=== PATIENT | male | born 1965 | race African-American/Black ===

== ENCOUNTER 2016-07-21 17:11 | Inpatient (IN) | payer SELFPAY ==
[~2016-07-21] VITALS: Ht 185.4 cm; Wt 138.9 kg
[2016-07-21] MEDS ORDERED: diazePAM 5 MG TABLET PO ONE (17:45)
[2016-07-21] MEDS ORDERED: MORPHINE SULFATE 10 MG/ML VIAL. IV ONE (17:45)
[2016-07-21] MEDS ORDERED: HYDROcodone/APAP 5/325MG 1 TAB TABLET PO ONE (18:15)
--- NOTE | 2016-07-21 18:33 | PHYS DOC ---
Past Medical History Past Medical History: Diabetes-Type II, Diverticulitis, Hypertension Past Surgical History: Appendectomy, Other Additional Past Surgical Histo: HEART TRANSPLANT,COLON RESECTION Alcohol Use: None Drug Use: None Adult General Chief Complaint Chief Complaint: LOWER EXT PAIN HPI HPI Patient is a 50 year old male with history of hypertension, diabetes type 2, diverticulitis, who presents complaining of muscle tear to the right calf. Patient states he was backing up a step when he heard something snap in his caff. Patient believes it was a muscle tear. Review of Systems Review of Systems Constitutional: Denies fever or chills [] Eyes: Denies change in visual acuity, redness, or eye pain [] HENT: Denies nasal congestion or sore throat [] Respiratory: Denies cough or shortness of breath [] Cardiovascular: No additional information not addressed in HPI [] GI: Denies abdominal pain, nausea, vomiting, bloody stools or diarrhea [] : Denies dysuria or hematuria [] Musculoskeletal: Right calf pain Integument: Denies rash or skin lesions [] Neurologic: Denies headache, focal weakness or sensory changes [] Endocrine: Denies polyuria or polydipsia [] Current Medications Current Medications Current Medications Medications (Trade) Dose Ordered Sig/Lucia Start Time Stop Time Status Last Admin Dose Admin Acetaminophen/ Hydrocodone Bitart (Lortab 5/325) 2 tab 1X ONCE 07/21/16 18:15 07/21/16 18:16 DC 07/21/16 18:31 2 TAB Diazepam (Valium) 5 mg 1X ONCE 07/21/16 17:45 07/21/16 17:47 DC 07/21/16 18:31 5 MG Hydromorphone HCl (Dilaudid) 1 mg 1X ONCE 07/21/16 21:30 07/21/16 21:31 DC 07/21/16 21:15 1 MG Morphine Sulfate 5 mg 1X ONCE 07/21/16 20:00 07/21/16 20:01 DC 07/21/16 20:04 5 MG Allergies Allergies Allergies Coded Allergies Type Severity Reaction Last Updated Verified No Known Drug Allergies 07/21/16 No Physical Exam Physical Exam Constitutional: Well developed, well nourished, no acute distress, non-toxic appearance. [] HENT: Normocephalic, atraumatic, bilateral external ears normal, oropharynx moist, no oral exudates, nose normal. [] Eyes: PERRLA, EOMI, conjunctiva normal, no discharge. [] Neck: Normal range of motion, no tenderness, supple, no stridor. [] Cardiovascular:Heart rate regular rhythm, no murmur [] Lungs & Thorax: Bilateral breath sounds clear to auscultation [] Abdomen: Bowel sounds normal, soft, no tenderness, no masses, no pulsatile masses. [] Skin: Warm, dry, no erythema, no rash. [] Back: No tenderness, no CVA tenderness. [] Extremities: right calf appear slightly bigger than the right with bruising on the posterior calf. Negative Homans sign to the right lower extremity. No obvious deformity noted on the right lower extremity. Tenderness diffusely throughout the right cuff. No redness to the cuff. Adequate flexion and extension of the right foot though patient states it's painful. Adequate sensation to the right lower extremity. +2 right pedal pulse. Cap refill less than 2 seconds the right lower extremity. Neurologic: Alert and oriented X 3, normal motor function, normal sensory function, no focal deficits noted. [] Psychologic: Affect normal, judgement normal, mood normal. [] Current Patient Data Vital Signs Vital Signs Date Time Temp Pulse Resp B/P (MAP) Pulse Ox O2 Delivery O2 Flow Rate FiO2 07/21/16 20:04 Room Air 07/21/16 17:27 98.5 116 22 149/88 (108) 94 98.5 EKG EKG [] Radiology/Procedures Radiology/Procedures []PROCEDURE: VENOUS LOWER EXTREMITY RIGHT Examination: Ultrasound right lower extremity venous duplex. HISTORY History of right calf pain, muscle tear. COMPARISON None available TECHNIQUE Grayscale, color Doppler 2D, spectral waveform was of the right lower extremity venous system were performed. Findings: The visualized common femoral vein, superficial femoral vein, popliteal vein demonstrate normal compression augmentation of flow. The visualized calf veins are patent. There is a 10.3 x 2.9 x 0.6 centimeter heterogeneous echogenicity identified in the calf probably hematoma or fluid. Impression: 1. No evidence of deep venous thrombosis. 2. 10.3 centimeter heterogeneous echogenicity identified in the right calf region could be hematoma. Underlying muscle injury or tear not completely excluded. Electronically signed by: Abdi Fagan (July 21, 2016 21:09:26) DICTATED and SIGNED BY: ABDI FAGAN MD DATE: 07/21/162108 CC: PRAKASH RODRIGUEZ MD; FORTINO DUARTE APRN ~ Course & Med Decision Making Course & Med Decision Making Pertinent Labs and Imaging studies reviewed. (See chart for details) Patient is in the ED with complaints of right calf pain, he believes he tore muscle in his right calf walking back on a step. Patient denies falling. We gave patient multiple pain medicines in the ED with no relief. Gave him Dilaudid with some relief Contacted Dr. Rodriguez. Patient was admitted. Orthopedic doctor will be consulted tomorrow morning per nursing staff MRI ordered for tomorrow morning Ultrasound of lower extremity No evidence of deep venous thrombosis. 10.3 centimeter heterogeneous echogenicity identified in the right calfregion could be hematoma. Underlying muscle injury or tear not completely excluded. Dragon Disclaimer Dragon Disclaimer This electronic medical record was generated, in whole or in part, using a voice recognition dictation system. Departure Departure Impression: Primary Impression: Intractable pain Disposition: ADMITTED INPATIENT Admitting Physician: Ed Rodriguez Referrals: PRAKASH RODRIGUEZ MD (PCP) FORTINO DUARTE APRN July 21, 2016 18:33
[2016-07-21] MEDS ORDERED: MORPHINE SULFATE 10 MG/ML VIAL. IM ONE (20:00)
--- NOTE | 2016-07-21 21:10 | RAD ---
Examination: Ultrasound right lower extremity venous duplex. HISTORY History of right calf pain, muscle tear. COMPARISON None available TECHNIQUE Grayscale, color Doppler 2D, spectral waveform was of the right lower extremity venous system were performed. Findings: The visualized common femoral vein, superficial femoral vein, popliteal vein demonstrate normal compression augmentation of flow. The visualized calf veins are patent. There is a 10.3 x 2.9 x 0.6 centimeter heterogeneous echogenicity identified in the calf probably hematoma or fluid. Impression: 1. No evidence of deep venous thrombosis. 2. 10.3 centimeter heterogeneous echogenicity identified in the right calf region could be hematoma. Underlying muscle injury or tear not completely excluded. Electronically signed by: Abdi Fagan (July 21, 2016 21:09:26)
[2016-07-21] MEDS ORDERED: HYDROmorphone 2 MG/ML VIAL IM ONE (21:30)
[2016-07-21] MEDS ORDERED: ONDANSETRON PF 4 MG/2 ML VIAL. IV PRN (23:00)
[2016-07-21] MEDS: MORPHINE SULFATE 4 MG/ML DISP.SYRIN. IV PRN (23:38)
[2016-07-22] VITALS (7 sets, daily range): BP systolic 137–162; BP diastolic 88–111
--- NOTE | 2016-07-22 00:48 | ACF ---
Admission Forms Criteria PAIN MANAGEMENT GR Clinical Indications for Admission to Inpatient Care (Place 'X' for any and all applicable criteria): Hospital admission is needed for appropriate care of the patient because of 1 or more of the following are present (1)(2)(3)(4)(5): [X ]I. Severe pain requiring acute inpatient management as indicated by 1 or more of the following (2)(5)(10): [X ]a) Continuous or frequent (eg, every 2 to 4 hours) parenteral analgesics required [A] [ ]b) Necessity (ie, alternative approaches not effective) for analgesic regimen that can only be performed or initiated in inpatient setting [ ]II. Pain causing debilitation to the point of inability to function or be supported at any other level of care [ ]III. Severe side effects from pain medications as indicated by ANY ONE of the following (12)(13)(14)(15): [ ]a) Uncontrollable seizures [ ]b) Cardiac arrhythmias of immediate concern [ ]c) Dehydration that is severe or persistent [ ]d) Vomiting that is severe or persistent [ ]e) Altered mental status that is severe or persistent [ ]f) Obstipation with inadequate GI function to maintain nutrition The original [employer] content created by [employer] has been revised. The portions of the content which have been revised are identified through the use of italic text or in bold, and [employer] has neither reviewed nor approved the modified material. All other unmodified content is copyright [employer]. Please see references footnoted in the original [employer] edition 2016 Admission Criteria Met?: Yes KENNETH REYNOLDS July 22, 2016 00:48
[2016-07-22] MEDS: MORPHINE SULFATE 4 MG/ML DISP.SYRIN. IV PRN ×9 (01:21→21:45)
[2016-07-22] MEDS ORDERED: OMEG300C PO (03:39)
[2016-07-22] MEDS ORDERED: TRAZ50TA15 PO (03:39)
[2016-07-22] MEDS ORDERED: AMLO10TA2 PO (03:39)
[2016-07-22] MEDS ORDERED: CHOL500016 PO (03:39)
[2016-07-22] MEDS ORDERED: GLIP5TAB22 PO (03:39)
[2016-07-22] MEDS ORDERED: ESOM20CA PO (03:39)
[2016-07-22] MEDS ORDERED: TACR1CAP4 PO (03:39)
[2016-07-22] MEDS ORDERED: PRAV40TA2 PO (03:39)
[2016-07-22] MEDS ORDERED: ASPI81TA2 PO (03:39)
[2016-07-22] MEDS ORDERED: METO100T11 PO (03:39)
[2016-07-22 05:43] LABS: BASO % 1 % (0-3); EOS % 1 % (0-3); HEMATOCRIT 44.3 % (39.0-53.0); HEMOGLOBIN 14.5 g/dL (13.0-17.5); LYMPH # 2.1 x10^3/uL (1.0-4.8); LYMPH % 32 % (24-48); MEAN CORPUSCULAR HEMOGLOBIN 29 pg (25-35); MEAN CORPUSCULAR HGB CONC 33 g/dL (31-37); MEAN CORPUSCULAR VOLUME 90 fL (79-100); MONO % 11 % (0-9); NEUT % 55 % (31-73); PLATELET COUNT 163 x10^3/uL (140-400); RED BLOOD COUNT 4.93 x10^6/uL (4.30-5.70); RED CELL DISTRIBUTION WIDTH 15.6 % (11.5-14.5); WHITE BLOOD COUNT 6.5 x10^3/uL (4.0-11.0)
[2016-07-22 06:16] LABS: CALCIUM 8.6 mg/dL (8.5-10.1); CREATININE 0.9 mg/dL (0.7-1.3); GFR 108.1; POTASSIUM 3.7 mmol/L (3.5-5.1)
--- NOTE | 2016-07-22 11:19 | PDOC ---
Provider Note Provider Note He was carrying furniture and stepping back off step and hyper flexed his right ankle and felt an immediate pop and has been unable to weightbear since and in pain despite IV Morphine. He has an apparent hematoma and is awaiting an MRI and ortho consult. He has had a heart transplant, has multiple other chronic medical issues including diabetes and IBS but has been working. 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 Full H&P dictated PRAKASH BUNCH MD July 22, 2016 11:19
[2016-07-22] MEDS: ASPIRIN CHEWABLE 81 MG TABLET. PO SCH (11:40)
[2016-07-22] MEDS: CHOLECALCIFEROL (VITAMIN D3) 1,000 UNIT TABLET PO SCH (11:40)
[2016-07-22] MEDS: TACROLIMUS 1 MG CAPSULE PO SCH ×2 (11:40→21:07)
[2016-07-22] MEDS: PANTOPRAZOLE 40 MG TABLET.DR. PO SCH (11:40)
[2016-07-22] MEDS: METOPROLOL SUCC 24HR ER 100 MG TAB.ER.24H. PO SCH (11:41)
[2016-07-22] MEDS: amLODIPine BESYLATE 10 MG TABLET PO SCH (11:42)
[2016-07-22] MEDS: glipiZIDE ER 2.5 MG TAB.ER.24 PO SCH (12:12)
--- NOTE | 2016-07-22 13:43 | RAD ---
Examination: MRI of the right calf without contrast History: History of stepping from yesterday, calf pain Comparison: None available Technique: Multiplanar, multisequence MR imaging of the right calf was performed without contrast Findings: There is increased T2 signal with fluid identified between the soleus muscle and the medial head of the gastrocnemius muscle likely edema with irregular low intensity signal within the fluid between the soleus muscle and the medial head of the gastrocnemius muscle likely a ruptured plantaris tendon. The superior portion of the edema is not included on the images. There is mild T2 signal/edema identified in the medial gastrocnemius muscle probably muscle strain or interstitial muscle tearing. The partially visualized proximal portion of the Achilles tendon appears intact. There is mild subcutaneous edema identified in the proximal mid calf region in the posterior medial region. The visualized tibia, fibula grossly appears unremarkable. Please note the Achilles tendon is not completely included on the images. Impression 1. Findings consistent with plantaris tendon rupture with edema between the soleus muscle and medial gastrocnemius muscle. There is mild edema identified in the medial gastrocnemius muscle probably muscle strain or interstitial muscle tearing.
--- NOTE | 2016-07-22 15:20 | HP ---
ADMIT DATE: 07/22/2016 ADMISSION DIAGNOSES: Fall at home with intractable right calf pain suspicious for Achilles versus gastrocnemius tear. HISTORY OF PRESENT ILLNESS: This is a 50-year-old -[place] male who was moving furniture. He was walking backwards carrying a couch and going down the step, he hyperflexed his right ankle as he was stepping down and felt immediate pop sensation in his right calf and has been unable to put weight bear on that leg since. He came to the Emergency Room where he was seen and evaluated. An ultrasound suggested a hematoma. Because of his severe pain, he was admitted for additional imaging including MRI and an orthopedic consult. He continues to require IV pain medicine at this point and he has remained bed bound since being admitted. PAST MEDICAL HISTORY: Is extensive. 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 He has had a transplant tachycardia since, but no other significant cardiac issues. He has hyperlipidemia, hypertension, GERD, type 2 diabetes, irritable bowel, morbid obesity. PAST SURGICAL HISTORY: Include appendectomy, colon resection, and heart transplant. SOCIAL HISTORY: No current tobacco or alcohol use. ALLERGIES: No known drug allergies. HOME MEDICATIONS: Include amlodipine 10 mg daily, aspirin 81 daily, vitamin D3 5000 units daily, Nexium 20 mg daily, glipizide 5 mg extended release daily, metoprolol succinate extended release 100 mg daily, fish oil 300 mg 2 at bedtime, pravastatin 40 mg at bedtime, Prograf 4 caps b.i.d. due to his heart transplant, trazodone 50 mg 1 at bedtime. FAMILY HISTORY: Noncontributory, but positive for diabetes. REVIEW OF SYSTEMS: He had not had any recent chest pain or other cardiac symptoms. He denies any lung symptoms, no cough, no shortness of breath. Miserable bowel symptom has been stable and controlled. GERD, but without his Nexium; prior to breakfast, he typically will need it. He has not had any changes in his bowels. He has not had any urinary trouble. He had not had any other musculoskeletal complaints until this event yesterday. He has no history of DVT or clotting issues. Mentally, he is chronically depressed, but able to function and work. His pain tolerance is low. His blood sugars have been under good recent control per his report. PHYSICAL EXAMINATION: VITAL SIGNS: Stable. He is comfortable sitting in bed. He has his baseline cardiac; tachycardia of a 110, his blood pressure is a little elevated, but he has not received his morning medications yet. ABDOMEN: Obese, nondistended, nontender. EXTREMITIES: Right posterior calf is extremely tender to just light touch. The Achilles is nontender to insertion into the ankle. There is no pre-calcaneal or bursal pain. Trying to dorsiflex the foot though causes extreme calf pain. The left leg is unremarkable. Other muscles are unremarkable with normal tone. NEUROLOGIC: Alert and oriented. Gait is not obviously tested. HEENT: Unremarkable. Conjunctivae are clear. Mucous membranes are moist. Vision and hearing are intact. NECK: Supple. RESPIRATORY: Lungs are clear. LABORATORY DATA: Glucose is 222, but otherwise chemistries are unremarkable. His renal function is normal. Blood count is normal, he is not anemic. IMAGING STUDIES: Lower extremity ultrasound on the right shows no evidence of DVT. There is a 10.3 cm heterogenous echogenicity identified in the right calf, but could be a hematoma, although underlying muscle injury and tear are not excluded. ASSESSMENT: 1. Fall at home with acute right calf pain suspicious for an upper Achilles/gastroc muscle tear resulting in at least a hematoma if not more. His pain is severe. He is admitted for pain control, additional imaging studies including MRI and orthopedic consultation. 2. Status post heart transplant with transplant tachycardia, stable. 3. Irritable bowel. 4. Gastroesophageal reflux disease. 5. Type 2 diabetes. We will check his A1c to assess for control. 6. Hypertension, uncontrolled currently, but he has not received his home meds. 7. Hyperlipidemia. PLAN: He is admitted for a pain control and bed rest with MRI of the right lower extremity and Ortho consultation. W Leonid BUNCH MD DR: NUPUR/oralia JOB#: [id number] / [id number]
--- NOTE | 2016-07-22 19:52 | PDOC2 ---
CONSULT Date of Consult Date of Consult DATE: 07/22/16 TIME: 17:26 Reason for Consult Reason for Consult: right leg pain Identification/Chief Complaint Chief Complaint right leg pain Source Source: Chart review, Patient History of Present Illness Reason for Visit: The patient was moving a couch and missed a step and hyperflexed his right foot. He does not report feeling a pop. He was unable to ambulate afterwards and presented to the ER. An ultrasound revealed no dvt, but a complex fluid collection. An MRI was done which reveals a plantaris rupture and partial tear of the medial head of the gastroc with associated hematoma. He reports no parasthesias, and was able to ambulate,albiet with difficulty with PT today. He reports severe pain in the calf region of his right leg when it is touched or when he tries to pull his toes towards his head. He does not have much pain at rest. Past Medical History Cardiovascular: HTN, Hyperlipidemia, Other (history of cardiac transplant) GI: GERD Endocrine: Diabetes Past Surgical History Past Surgical History: Appendectomy, Colon Resection Family History Family History: Diabetes Social History No ALCOHOL: none Drugs: None Current Problem List Problem List Problems Medical Problems: (1) Intractable pain Status: Acute Current Medications Current Medications Current Medications Morphine Sulfate 5 mg 1X ONCE IV ; Start 07/21/16 at 17:45; Stop 07/21/16 at 18 :12; Status DC Diazepam (Valium) 5 mg 1X ONCE PO Last administered on 07/21/16 18:31; Start 07/21/16 at 17:45; Stop 07/21/16 at 17:47; Status DC Acetaminophen/ Hydrocodone Bitart (Lortab 5/325) 2 tab 1X ONCE PO Last administered on 07/21/16 18:31; Start 07/21/16 at 18:15; Stop 07/21/16 at 18:16 ; Status DC Morphine Sulfate 5 mg 1X ONCE IM Last administered on 07/21/16 20:04; Start 07/21/16 at 20:00; Stop 07/21/16 at 20:01; Status DC Hydromorphone HCl (Dilaudid) 1 mg 1X ONCE IM Last administered on 07/21/16 21 :15; Start 07/21/16 at 21:30; Stop 07/21/16 at 21:31; Status DC Ondansetron HCl (Zofran) 4 mg PRN Q8HRS PRN IV NAUSEA/VOMITING; Start 07/21/16 at 23:00; Stop 07/22/16 at 22:59 Morphine Sulfate 4 mg PRN Q2HR PRN IV SEVERE PAIN Last administered on 17:27; Start 07/21/16 at 23:00; Stop 07/22/16 at 22:59 Amlodipine Besylate (Norvasc) 10 mg DAILY PO Last administered on 07/22/16 11: 42; Start 07/22/16 at 11:30 Aspirin (Children'S Aspirin) 81 mg DAILY08 PO Last administered on 07/22/16 11 :40; Start 07/22/16 at 11:30 Metoprolol Succinate (Toprol Xl) 100 mg DAILY PO Last administered on 11:41; Start 07/22/16 at 11:30 Tacrolimus (Prograf) 4 mg BID PO Last administered on 07/22/16 11:40; Start at 11:30 Trazodone HCl (Desyrel) 50 mg QHS PO ; Start 07/22/16 at 21:00 Vitamin D (Vitamin D3) 1,000 unit DAILY PO Last administered on 07/22/16 11:40 ; Start 07/22/16 at 11:30 Pantoprazole Sodium (Protonix) 40 mg DAILYAC PO Last administered on 07/22/16 11:40; Start 07/22/16 at 11:30 Glipizide (Glucotrol Er) 5 mg DAILY08 PO Last administered on 07/22/16 12:12; Start 07/22/16 at 11:30 Fish Oil (Fish Oil) 1,000 mg QHS PO ; Start 07/22/16 at 21:00 Atorvastatin Calcium (Lipitor) 10 mg QHS PO ; Start 07/22/16 at 21:00 Active Scripts Active Reported Trazodone Hcl 50 Mg Tablet 1 Tab PO QHS Fish Oil ([place]-3 Fatty Acids) 300 Mg Capsule 600 Mg PO QHS Pravastatin Sodium 40 Mg Tablet 1 Tab PO QHS Vitamin D3 (Cholecalciferol (Vitamin D3)) 5,000 Unit Tablet 1 Tab PO DAILY Aspirin 81 Mg Tab.chew 1 Tab PO DAILY Glipizide Er (Glipizide) 5 Mg Tab.er.24 1 Tab PO DAILY Metoprolol Succinate ( Xl ) (Metoprolol Succinate) 100 Mg Tab.er.24h 1 Tab PO DAILY Amlodipine Besylate 10 Mg Tablet 10 Mg PO DAILY Prograf (Tacrolimus) 1 Mg Capsule 4 Cap PO BID Nexium Capsule (Esomeprazole Magnesium) 20 Mg Capsule. 1 Cap PO DAILY Allergies Allergies: Coded Allergies: No Known Drug Allergies (Unverified , 07/21/16) ROS General: No: Chills, Night Sweats, Fatigue, Malaise, Appetite, Other Musculoskeletal: Yes Gait Disturbance, Yes Muscle Pain, Yes Muscular Weakness Physical Exam General: Alert, Oriented X3, Cooperative, No acute distress MUSCULOSKELETAL: No deformity, Other (RLE: leg not swollen. ttp over the medial gastroc. compartments are soft. no parasthesias. silt in the superficial peroneal, deep peroneal, tibial, and sural nerves. 2+ dp pulse. pain with foot dorsiflexion) Vitals VITALS Vital Signs Date Time Temp Pulse Resp B/P (MAP) Pulse Ox O2 Delivery O2 Flow Rate FiO2 07/22/16 18:48 98.5 104 20 139/88 (105) 95 Room Air 98.5 Labs Labs Laboratory Tests Test 07/22/16 05:20 07/22/16 07:09 07/22/16 11:16 07/22/16 16:25 White Blood Count 6.5 x10^3/uL (4.0-11.0) Red Blood Count 4.93 x10^6/uL (4.30-5.70) Hemoglobin 14.5 g/dL (13.0-17.5) Hematocrit 44.3 % (39.0-53.0) Mean Corpuscular Volume 90 fL (79-100) Mean Corpuscular Hemoglobin 29 pg (25-35) Mean Corpuscular Hemoglobin Concent 33 g/dL (31-37) Red Cell Distribution Width 15.6 % (11.5-14.5) Platelet Count 163 x10^3/uL (140-400) Neutrophils (%) (Auto) 55 % (31-73) Lymphocytes (%) (Auto) 32 % (24-48) Monocytes (%) (Auto) 11 % (0-9) Eosinophils (%) (Auto) 1 % (0-3) Basophils (%) (Auto) 1 % (0-3) Neutrophils # (Auto) 3.6 x10^3uL (1.8-7.7) Lymphocytes # (Auto) 2.1 x10^3/uL (1.0-4.8) Monocytes # (Auto) 0.7 x10^3/uL (0.0-1.1) Eosinophils # (Auto) 0.1 x10^3/uL (0.0-0.7) Basophils # (Auto) 0.0 x10^3/uL (0.0-0.2) Sodium Level 136 mmol/L (136-145) Potassium Level 3.7 mmol/L (3.5-5.1) Chloride Level 99 mmol/L (98-107) Carbon Dioxide Level 28 mmol/L (21-32) Anion Gap 9 (6-14) Blood Urea Nitrogen 15 mg/dL (8-26) Creatinine 0.9 mg/dL (0.7-1.3) Estimated GFR (Cockcroft-Gault) 108.1 Glucose Level 222 mg/dL (70-99) Calcium Level 8.6 mg/dL (8.5-10.1) Glucose (Fingerstick) 205 mg/dL (70-99) 200 mg/dL (70-99) 227 mg/dL (70-99) Laboratory Tests Test 07/22/16 05:20 07/22/16 07:09 07/22/16 11:16 07/22/16 16:25 White Blood Count 6.5 x10^3/uL (4.0-11.0) Red Blood Count 4.93 x10^6/uL (4.30-5.70) Hemoglobin 14.5 g/dL (13.0-17.5) Hematocrit 44.3 % (39.0-53.0) Mean Corpuscular Volume 90 fL (79-100) Mean Corpuscular Hemoglobin 29 pg (25-35) Mean Corpuscular Hemoglobin Concent 33 g/dL (31-37) Red Cell Distribution Width 15.6 % (11.5-14.5) Platelet Count 163 x10^3/uL (140-400) Neutrophils (%) (Auto) 55 % (31-73) Lymphocytes (%) (Auto) 32 % (24-48) Monocytes (%) (Auto) 11 % (0-9) Eosinophils (%) (Auto) 1 % (0-3) Basophils (%) (Auto) 1 % (0-3) Neutrophils # (Auto) 3.6 x10^3uL (1.8-7.7) Lymphocytes # (Auto) 2.1 x10^3/uL (1.0-4.8) Monocytes # (Auto) 0.7 x10^3/uL (0.0-1.1) Eosinophils # (Auto) 0.1 x10^3/uL (0.0-0.7) Basophils # (Auto) 0.0 x10^3/uL (0.0-0.2) Sodium Level 136 mmol/L (136-145) Potassium Level 3.7 mmol/L (3.5-5.1) Chloride Level 99 mmol/L (98-107) Carbon Dioxide Level 28 mmol/L (21-32) Anion Gap 9 (6-14) Blood Urea Nitrogen 15 mg/dL (8-26) Creatinine 0.9 mg/dL (0.7-1.3) Estimated GFR (Cockcroft-Gault) 108.1 Glucose Level 222 mg/dL (70-99) Calcium Level 8.6 mg/dL (8.5-10.1) Glucose (Fingerstick) 205 mg/dL (70-99) 200 mg/dL (70-99) 227 mg/dL (70-99) Images Images MRI of the right leg reveals a hematoma of the superficial posterior compartment. Assessment/Plan Assessment/Plan His exam is not consistent with compartment syndrome, but that could be a concern if his exam changes or his pain worsens. No surgical intervention is warranted at this time. He is able to be wbat on his rle. I suggested a CAM walker boot to prevent him from dorsiflexing. However I told him it might cause him more pain due to where the boot hits on his calf. He would like to try it and see however. He will need to see how he does with PT and the boot and once his pain is under control he is stable for dc from my standpoint. JUAN FRANCISCO CANNON MD July 22, 2016 19:52
[2016-07-22] MEDS ORDERED: traZODone 50 MG TABLET. PO SCH (21:00)
[2016-07-22] MEDS ORDERED: ATORVASTATIN CALCIUM 10 MG TABLET. PO SCH (21:00)
[2016-07-22] MEDS ORDERED: OMEGA-3 FATTY ACIDS/FISH OIL 1,000 MG CAPSULE. PO SCH (21:00)
[2016-07-22] MEDS: oxyCODONE/APAP 7.5/325 1 TAB TABLET PO PRN ×2 (21:07→21:55)
[2016-07-22] MEDS ORDERED: MYCO500T PO (21:12)
[2016-07-22] MEDS: MYCOPHENOLATE MOFETIL 250 MG CAPSULE. PO SCH (21:45)
[2016-07-23] MEDS: MORPHINE SULFATE 4 MG/ML DISP.SYRIN. IV PRN ×7 (00:34→16:04)
[2016-07-23 02:58] VITALS: BP 171/113
[2016-07-23] MEDS: oxyCODONE/APAP 7.5/325 1 TAB TABLET PO PRN ×2 (04:38→15:20)
[2016-07-23] MEDS: PANTOPRAZOLE 40 MG TABLET.DR. PO SCH (06:44)
[2016-07-23 07:00] VITALS: BP 153/110
--- NOTE | 2016-07-23 07:07 | PDOC ---
PROGRESS NOTES Subjective Subjective Problems overnight: no acute issues overnight. he states his pain is improving. he has been trying to move his leg around more because he says "he needs to get back to work". He works standing and walking a lot so that may be difficult for him unless there is a light duty option. no signs or symptoms of compartment syndrome have evolved over the past 24 hours. Objective Vital Signs Vital Signs Date Time Temp Pulse Resp B/P (MAP) Pulse Ox O2 Delivery O2 Flow Rate FiO2 07/23/16 06:42 20 95 Room Air 07/23/16 02:58 97.6 104 171/113 (132) 97.6 Physical Exam RIGHT LOWER EXTREMITY: tenderness to palpation over the medial proximal calf. improved from yesterday. pain with dorsiflexion of the foot in the mid calf. neurovascularly intact distally. Labs Laboratory Tests Test 07/22/16 05:20 07/22/16 07:09 07/22/16 11:16 07/22/16 16:25 White Blood Count 6.5 x10^3/uL (4.0-11.0) Red Blood Count 4.93 x10^6/uL (4.30-5.70) Hemoglobin 14.5 g/dL (13.0-17.5) Hematocrit 44.3 % (39.0-53.0) Mean Corpuscular Volume 90 fL (79-100) Mean Corpuscular Hemoglobin 29 pg (25-35) Mean Corpuscular Hemoglobin Concent 33 g/dL (31-37) Red Cell Distribution Width 15.6 % (11.5-14.5) Platelet Count 163 x10^3/uL (140-400) Neutrophils (%) (Auto) 55 % (31-73) Lymphocytes (%) (Auto) 32 % (24-48) Monocytes (%) (Auto) 11 % (0-9) Eosinophils (%) (Auto) 1 % (0-3) Basophils (%) (Auto) 1 % (0-3) Neutrophils # (Auto) 3.6 x10^3uL (1.8-7.7) Lymphocytes # (Auto) 2.1 x10^3/uL (1.0-4.8) Monocytes # (Auto) 0.7 x10^3/uL (0.0-1.1) Eosinophils # (Auto) 0.1 x10^3/uL (0.0-0.7) Basophils # (Auto) 0.0 x10^3/uL (0.0-0.2) Sodium Level 136 mmol/L (136-145) Potassium Level 3.7 mmol/L (3.5-5.1) Chloride Level 99 mmol/L (98-107) Carbon Dioxide Level 28 mmol/L (21-32) Anion Gap 9 (6-14) Blood Urea Nitrogen 15 mg/dL (8-26) Creatinine 0.9 mg/dL (0.7-1.3) Estimated GFR (Cockcroft-Gault) 108.1 Glucose Level 222 mg/dL (70-99) Calcium Level 8.6 mg/dL (8.5-10.1) Glucose (Fingerstick) 205 mg/dL (70-99) 200 mg/dL (70-99) 227 mg/dL (70-99) Laboratory Tests Test 07/22/16 07:09 07/22/16 11:16 07/22/16 16:25 Glucose (Fingerstick) 205 mg/dL (70-99) 200 mg/dL (70-99) 227 mg/dL (70-99) Assessment Assessment Hospital day 2 with right lower extremity pain Problems: (1) Muscle strain (2) Intractable pain Plan Plan of Care I have ordered the patient a CAM walker boot to see if the ankle stability and limitation of dorsiflexion will help with his pain during ambulation. He will need to get up with physical therapy today after the boot is placed to see how he does. If his pain is well controlled and he feels safe for ambulation and discharge I think that would be reasonable to expect later today. he is also requesting a return to work note upon discharge. I told him it is highly unlikely that he will be up to standing for long periods of time and doing a lot of walking already since he hasn't really been out of bed since coming to the hospital. He will call his job today and see if there is a light duty option where he can sit at a desk. If so, I Think that would be more reasonable and he will need a note saying that light duty with limited standing / walking is ok. Otherwise he should remain off work until he sees me next week. follow-up in my office in 1 week. Thank you for allowing me to participate in the care of this patient. Please call my office at [facility] [phone] with any questions or concerns. JUAN FRANCISCO CANNON MD July 23, 2016 07:07
[2016-07-23] MEDS ORDERED: OXYC1TAB8 PO (08:59)
[2016-07-23] MEDS: TACROLIMUS 1 MG CAPSULE PO SCH (09:12)
[2016-07-23] MEDS: METOPROLOL SUCC 24HR ER 100 MG TAB.ER.24H. PO SCH (09:13)
[2016-07-23] MEDS: MYCOPHENOLATE MOFETIL 250 MG CAPSULE. PO SCH (09:13)
[2016-07-23] MEDS: ASPIRIN CHEWABLE 81 MG TABLET. PO SCH (09:13)
[2016-07-23] MEDS: glipiZIDE ER 2.5 MG TAB.ER.24 PO SCH (09:13)
[2016-07-23] MEDS: CHOLECALCIFEROL (VITAMIN D3) 1,000 UNIT TABLET PO SCH (09:13)
[2016-07-23] MEDS: amLODIPine BESYLATE 10 MG TABLET PO SCH (09:14)
[2016-07-23 11:00] VITALS: BP 150/108
--- NOTE | 2016-07-23 11:31 | DS ---
DATE OF DISCHARGE: 07/23/2016 ADMISSION DIAGNOSIS: Intractable pain, right lower extremity. DISCHARGE DIAGNOSIS: Plantaris tendon rupture with hematoma of the right leg. ASSOCIATED DIAGNOSES: Type 2 diabetes, controlled, hypertension, status post heart transplant, irritable bowel syndrome. HISTORY AND HOSPITAL COURSE: This is a 50-year-old -Citizen Of [place] male who was walking backwards, helping move a couch when he stepped down from a step and hyperflexed his right foot, he felt a pop in his right calf, had immediate pain, he was unable to ambulate. He came to the Emergency Room because he is unable to ambulate and subsequently admitted for pain control and further evaluation. He was noted on ultrasound of his calf to have a 10 cm hematoma. He required IV morphine and then oral Percocet for pain. Ice was placed on the calf to help with further swelling. No bruising was present. Ortho consultation was obtained. He was seen by Dr. Rahman. MRI was ordered and showed plantaris tendon rupture with edema between the soleus muscle and the medial gastrocnemius muscle and mild edema in the medial gastrocnemius muscle and probable muscle strain or interstitial muscle tearing. He did not seem to have a compartment syndrome. He is up with the assistance of a walker, but ambulating with discomfort. CAM boots have been ordered. He will be discharged home with crutches and CAM boot. CAM boot likely will cause some discomfort in the calf. The edema should resolve. He will continue ice. He will use Percocet 7.5/325 for pain. DISCHARGE MEDICATIONS: He will continue his home medications including amlodipine 10 mg daily, aspirin 81 daily, vitamin D3, 5000 units daily, Nexium 20 mg daily, glipizide 5 mg daily, metoprolol 100 mg extended release daily, CellCept 500 mg 2 b.i.d., omega 3 fish oil 300 mg 2 at bedtime, pravastatin 40 mg at bedtime, Prograf 1 mg 4 caps b.i.d., trazodone 50 mg at bedtime. PLAN: He will be up as tolerated. He wants to return to work on Saturday assuming he can get authorization for sit down duties. He will follow up with Dr. Rahman in week and follow up with myself within 2 weeks. W R. ALIVIA, MD DR: NUPUR/oralia JOB#: [id number] / [id number]
[2016-07-23 15:00] VITALS: BP 132/98
== END 2016-07-23 16:50 | disposition home or self-care (01) | DRG 563 ==
LOC: ER 18:06 → 6 SOUTH 21:32
PROVIDERS: ADMIT Family Medicine; ATTEND Family Medicine
DX: S86.111A Strain of other muscle(s) and tendon(s) of posterior muscle group at lower leg level, right leg, initial encounter (principal); I42.9 Cardiomyopathy, unspecified; Z94.1 Heart transplant status; Z68.41 Body mass index [BMI] 40.0-44.9, adult; K21.9 Gastro-esophageal reflux disease without esophagitis; E11.9 Type 2 diabetes mellitus without complications; E78.5 Hyperlipidemia, unspecified; I10 Essential (primary) hypertension; K58.9 Irritable bowel syndrome, unspecified; W19.XXXA Unspecified fall, initial encounter; X50.0XXA Overexertion from strenuous movement or load, initial encounter; Y92.009 Unspecified place in unspecified non-institutional (private) residence as the place of occurrence of the external cause; Z83.3 Family history of diabetes mellitus; Z74.01 Bed confinement status; Z90.49 Acquired absence of other specified parts of digestive tract; E66.01 Morbid (severe) obesity due to excess calories; S80.11XA Contusion of right lower leg, initial encounter
CPT/HCPCS: 36415; 73718; 80048; 82962; 83036; 85027; 93971; 96372; J1170; J2270; J7507; J7517; 97116; 99285-25

== ENCOUNTER → 2018-12-05 | Outpatient (CLI) | payer BC, OTHER ==
[~2018-12-05] MED LIST: AMLO10TA8 PO; ASPI-630 PO; CHOL500016 PO; ESOM20CA PO; GLIP5TAB22 PO; METO-247 PO; MYCO500T PO; OMEG300C PO; OXYC1TAB8 PO; PRAV40TA2 PO; TACR1CAP4 PO; TRAZ-118 PO
--- NOTE | 2018-12-05 15:30 | KCIC ---
EXAM: Right ankle, 3 views. HISTORY: Swelling. COMPARISON: None. FINDINGS: 3 views of the right ankle are obtained. There is no fracture, dislocation or subluxation. No osteochondral lesion is seen. There is a tiny plantar spur. There is soft tissue swelling. IMPRESSION: No acute osseous finding. Electronically signed by: Marychuy Layton MD (12/05/2018 3:27 PM) [facility]
== END | disposition home or self-care (01) ==
LOC: KCIC 12:04
PROVIDERS: ATTEND Nurse Practitioner Gerontology
DX: R60.0 Localized edema (principal); M25.471 Effusion, right ankle
CPT/HCPCS: 73610

== ENCOUNTER → 2018-12-26 | Outpatient (CLI) | payer BC, OTHER ==
--- NOTE | 2018-12-26 12:43 | KCIC ---
Right lower extremity venous duplex study 12/26/2018 12:40 PM Clinical History: Right lower extremity pain and edema Technique: Using a combination of real time ultrasound imaging and color-flow and pulse Doppler imaging techniques, including spectral analysis, graded compression and augmentation, duplex evaluation of the deep venous system of the right lower extremity was performed. Multiple images were obtained. Findings: There is no sonographic evidence of deep venous thrombosis involving the visualized deep venous structures of the right lower extremity Impression: No evidence of deep venous thrombosis involving the right lower extremity Electronically signed by: Jonnathan Larson MD (12/26/2018 12:40 PM) [id number]
--- NOTE | 2018-12-26 16:03 | KCIC ---
Right lower extremity arterial duplex ultrasound 12/26/2018 INDICATION: Acute onset right ankle pain COMPARISON STUDY: None Discussion: Ultrasound evaluation of the major arteries of the right lower extremity were performed including color Doppler imaging spectral analysis. Normal waveform morphology and velocities are seen throughout the major arteries of the bilateral lower extremity. No evidence of major vascular occlusion, aneurysm, or hemodynamically significant stenosis is identified. IMPRESSION: Normal sonographic appearance of the major arteries of the right lower extremity Electronically signed by: Jonnathan Larson MD (12/26/2018 4:00 PM) [id number]
== END | disposition home or self-care (01) ==
LOC: KCIC US 08:47
PROVIDERS: ATTEND Family Medicine
DX: M25.571 Pain in right ankle and joints of right foot (principal); M79.604 Pain in right leg
CPT/HCPCS: 93926; 93971

== ENCOUNTER → 2019-12-15 | Outpatient (CLI) | payer OTHER ==
[~2019-12-15] MED LIST changes: -TACR1CAP4 PO; +TACR1CAP5 PO
--- NOTE | 2019-12-15 14:42 | KCIC ---
PROCEDURE: KNEE BILAT 3V STUDY DATE: 12/15/2019 CLINICAL INDICATION / HISTORY: Reason: PAIN IN LEFT AND RIGHT KNEE / Spl. Instructions: Left lateral lnee pain, sharp with walking. NKI. / History: . TECHNIQUE: AP, lateral, and oblique views of the right knee. COMPARISON: None FINDINGS: The osseous structures are intact. The articular surfaces are smooth. The joint space is maintained. No intra-articular loose bodies. The alignment is within normal limits. The soft tissues are unremarkable. No obvious joint effusion. No radio-opaque foreign bodies are identified. IMPRESSION: No fracture or dislocation is identified. Electronically signed by: Isac Nickerson MD (12/15/2019 2:39 PM) [id number]
== END ==
LOC: KCIC 11:31
PROVIDERS: ATTEND Family Medicine
DX: M25.562 Pain in left knee (principal); M25.561 Pain in right knee
CPT/HCPCS: 73562

== ENCOUNTER → 2020-12-29 | Outpatient (CLI) | payer OTHER ==
[~2020-12-29] MED LIST changes: +AMLO-187 PO; -AMLO10TA8 PO
--- NOTE | 2020-12-29 14:11 | KCIC ---
EXAM: XR HIP (WITH OR WITHOUT PELVIS) RIGHT 1 VIEW, XR LUMBAR SPINE 4+V 12/29/2020 11:18 AM CLINICAL INDICATION: Lower back pain with right radiculopathy. Right hip bursitis. COMPARISON: None TECHNIQUE: AP view the pelvis and frog-leg lateral view of the right hip. AP, lateral, coned-down la teral, and right left oblique views of the lumbar spine FINDINGS: Right hip: No acute fracture. Alignment is normal. There is moderate bilateral hip joint space narrow ing with mild subchondral cysts and sclerosis. There are femoral head and acetabular osteophytes. Pub ic symphysis and sacroiliac joints are unremarkable. Lumbar spine: There 5 nonrib-bearing lumbar vertebral bodies. No acute fracture. Alignment is normal. There are small anterior osteophytes at L2-L3, L3-4, and L4-L5. No significant disc space narrowing. There is lower lumbar facet arthrosis. IMPRESSION: 1. 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 2. Mild degenerative disc disease in the lumbar spine. Electronically signed by: Brenda Peraza MD (12/29/2020 2:08 PM) [facility]
== END ==
LOC: KCIC 11:15
PROVIDERS: ATTEND Family Medicine
DX: M51.16 Intervertebral disc disorders with radiculopathy, lumbar region (principal); M25.78 Osteophyte, vertebrae; M16.11 Unilateral primary osteoarthritis, right hip; M25.751 Osteophyte, right hip; M25.851 Other specified joint disorders, right hip; M70.71 Other bursitis of hip, right hip; M85.661 Other cyst of bone, right lower leg
CPT/HCPCS: 72110; 73501